=== PATIENT | male | born 1965 | race African-American/Black ===

== ENCOUNTER 2018-12-01 12:02 | Emergency (ER) | payer MEDICARE, OTHER ==
[~2018-12-01] VITALS: Ht 180.3 cm; Wt 106.6 kg
[2018-12-01 15:09] VITALS: BP 133/100
== END 2018-12-01 15:21 | disposition home or self-care (01) ==
LOC: ER 12:10
DX: J02.9 Acute pharyngitis, unspecified (principal); J45.909 Unspecified asthma, uncomplicated; I10 Essential (primary) hypertension

== ENCOUNTER 2022-06-11 00:27 | Inpatient (IN) | payer OTHER ==
[~2022-06-11] VITALS: Ht 180.3 cm; Wt 98.0 kg
[2022-06-11] VITALS (9 sets, daily range): BP systolic 99–115; BP diastolic 76–85
[2022-06-11] MEDS ORDERED: ACETAMINOPHEN 325 MG TAB PO PRN (01:30)
[2022-06-11] MEDS ORDERED: PANTOPRAZOLE 40 MG/10 ML VIAL INJ IV SCH (01:30)
[2022-06-11] MEDS ORDERED: NITROGLYCERIN 0.4 MG SL TAB SL PRN (01:30)
[2022-06-11] MEDS ORDERED: DEXTROSE (50%) 50ML SYRG IV PRN (01:30)
[2022-06-11] MEDS ORDERED: ONDANSETRON HCL 4 MG/2 ML VIAL IV PRN (01:30)
[2022-06-11] MEDS ORDERED: hydrALAZINE HCL 10 MG TAB PO PRN (01:45)
[2022-06-11] MEDS ORDERED: HYDR-4072 PO (02:16)
[2022-06-11 02:53] LABS: INR 1.01 (0.9-1.15)
[2022-06-11] MEDS: HYDROcodone-ACET 5/325MG TAB PO PRN ×2 (03:00→22:32)
[2022-06-11] MEDS ORDERED: cefTRIAXone 1GM/50ML D5W 50 ML IV SCH ×2 (04:00→09:00)
[2022-06-11] MEDS: ACCU-CHEK COMFORT CURVE STRIP VI SCH ×4 (06:31→22:00)
[2022-06-11] MEDS: InsuLIN REG 1unit/0.01ml Soln (100units/ml) SC SCH ×4 (06:32→22:00)
[2022-06-11] MEDS ORDERED: ADENOSINE 81 MG in GIVE UN-DILUTED 0 ML IV ONE ×2 (07:45→12:00)
[2022-06-11 07:59] LABS: Basophils # (auto) 0 10 ^3/uL (0-0.2); Basophils % (auto) 0.8 % (0.0-2.0); Eosinophils # (auto) 0.1 10 ^3/uL (0-0.8); Eosinophils % (auto) 1.3 % (0.0-7.0); Hemoglobin 16.2 g/dL (13.5-17.5); Mean Corpuscular Hemoglobin 30.3 pg (28.0-32.0); Mean Corpuscular Hgb Conc. 33.8 g/dL (32.0-36.0); Mean Corpuscular Volume 89.6 fL (80.0-100.0); Monocytes # (auto) 0.6 10 ^3/uL (0-1.3); Monocytes % (auto) 10.3 % (0.0-12.0); Neutrophils % (auto) 52.6 % (37.0-80.0); Nucleated Red Blood Cells % 0.4 %; Red Blood Cells 5.36 10^6/uL (4.5-5.90); Red Cell Distribution Width 15.1 % (11.8-14.3); White Blood Cell 5.6 10^3/uL (4.4-10.8)
[2022-06-11 08:57] LABS: Calcium 9.2 mg/dL (8.5-10.1); Potassium 3.8 mmol/L (3.5-5.1)
[2022-06-11 09:00] LABS: BUN/Creatinine Ratio 10.7
[2022-06-11] MEDS ORDERED: GIVE UN DILUTED IV STA (11:16)
[2022-06-11] MEDS ORDERED: ADENOSINE IV STA (11:16)
[2022-06-11] MEDS ORDERED: CEPH-510 PO (16:57)
[2022-06-12 05:00] VITALS: BP 114/76
[2022-06-12 06:24] LABS: Basophils # (auto) 0 10 ^3/uL (0-0.2); Basophils % (auto) 0.5 % (0.0-2.0); Eosinophils # (auto) 0.1 10 ^3/uL (0-0.8); Eosinophils % (auto) 1.9 % (0.0-7.0); Hematocrit 46.2 % (41.0-53.0); Hemoglobin 15.6 g/dL (13.5-17.5); Lymphocytes # (auto) 2.1 10 ^3/uL (0.4-5.4); Lymphocytes % (auto) 33.5 % (10.0-50.0); Mean Corpuscular Hemoglobin 30.5 pg (28.0-32.0); Mean Corpuscular Hgb Conc. 33.7 g/dL (32.0-36.0); Mean Corpuscular Volume 90.4 fL (80.0-100.0); Monocytes # (auto) 0.7 10 ^3/uL (0-1.3); Monocytes % (auto) 10.8 % (0.0-12.0); Neutrophils # (auto) 3.3 10 ^3/uL (1.6-8.6); Neutrophils % (auto) 53.3 % (37.0-80.0); Nucleated Red Blood Cells % 0.1 %; Red Blood Cells 5.11 10^6/uL (4.5-5.90); Red Cell Distribution Width 14.8 % (11.8-14.3); White Blood Cell 6.1 10^3/uL (4.4-10.8)
[2022-06-12] MEDS: ACCU-CHEK COMFORT CURVE STRIP VI SCH (06:31)
[2022-06-12] MEDS: InsuLIN REG 1unit/0.01ml Soln (100units/ml) SC SCH (06:31)
[2022-06-12 06:39] LABS: Calcium 9.2 mg/dL (8.5-10.1); Potassium 3.7 mmol/L (3.5-5.1)
[2022-06-12 08:00] VITALS: BP 99/76
[2022-06-12 08:50] VITALS: BP 109/79
[2022-06-12] MEDS: HYDROcodone-ACET 5/325MG TAB PO PRN (12:26)
[2022-06-12 13:25] VITALS: BP 109/80
[2022-06-12 17:00] VITALS: BP 103/69
[2022-06-13] MEDS ORDERED: PANTOPRAZOLE 40 MG TAB PO SCH (10:00)
== END 2022-06-12 17:37 | disposition left against medical advice (07) | DRG 313 ==
LOC: WEST WING 00:31 → UNDOADMIN 00:31 → TELE-WESTW 01:41
PROVIDERS: ADMIT Internal Medicine; ATTEND Internal Medicine
DX: R07.9 Chest pain, unspecified (principal); N39.0 Urinary tract infection, site not specified; K21.9 Gastro-esophageal reflux disease without esophagitis; M54.9 Dorsalgia, unspecified; R77.8 Other specified abnormalities of plasma proteins; I10 Essential (primary) hypertension; E10.9 Type 1 diabetes mellitus without complications; Z20.822 Contact with and (suspected) exposure to COVID-19; Z53.29 Procedure and treatment not carried out because of patient's decision for other reasons; Z80.1 Family history of malignant neoplasm of trachea, bronchus and lung
CPT/HCPCS: 36415; 78452; 80048; 82962; 84484; 85025; 85610; 87086; 87426; 93017; 93306; C9113; G0378; J0153; J0696